=== PATIENT | female | born 2000 ===

== ENCOUNTER 2024-04-14 08:39 | Emergency (ER) | payer SELFPAY ==
[2024-04-14] MEDS: LORazepam 2 MG/ML SDV IM ONE (10:21)
[2024-04-14] MEDS: LORazepam 0.5 MG Tab PO ONE (11:00)
[2024-04-14] MEDS: hydrOXYzine HCl 25 MG Tab PO ONE (12:59)
[2024-04-14] MEDS: Acetaminophen 500 MG Tab PO ONE (15:02)
== END 2024-04-14 15:07 | disposition home or self-care (01) ==
LOC: JP.ED 08:39
DX: F41.9 Anxiety disorder, unspecified (principal); F17.210 Nicotine dependence, cigarettes, uncomplicated; Z86.16 Personal history of COVID-19; Z88.1 Allergy status to other antibiotic agents
CPT/HCPCS: 96372; 99284; A9270; J2060